=== PATIENT | female | born 1985 | race African-American/Black ===

== ENCOUNTER 2016-11-07 11:05 | Emergency (ER) | payer OTHER ==
[~2016-11-07] VITALS: Ht 167.6 cm; Wt 99.8 kg
[2016-11-07] MEDS ORDERED: MORPHINE SULFATE INJ 2 MG/ML DISP.SYRIN IV ONE ×2 (11:30→13:00)
[2016-11-07] MEDS ORDERED: ONDANSETRON HCL/PF 4 MG/2 ML VIAL IVP ONE (11:30)
[2016-11-07] MEDS ORDERED: IV NS 0.9% 1,000 ML BAG IV ONE ×2 (11:30→15:00)
--- NOTE | 2016-11-07 11:30 | NUR ---
PT BIB SELF C/O N/V/ABD PAIN/CHILLS X TODAY. PT REPORTS THIS HAPPENED A FEW DAYS AGO AND RESOLVED ON ITS OWN THAT TIME. POOR PO TOLERANCE TODAY. SKIN WARM NONDIAPHORETIC. RESP EVEN UNLABORED. APPEARS UNCOMFORTABLE BUT NOT IN ACUTE DISTRESS. IN ER BED 12
[2016-11-07] MEDS ORDERED: ONDANSETRON HCL/PF 4 MG/2 ML VIAL ONE (11:31)
[2016-11-07] MEDS ORDERED: IV SET PRIMARY 1 EA INFUS.SET MC ONE ×2 (11:31→15:00)
[2016-11-07] MEDS ORDERED: IV NS 0.9% 1,000 ML ONE ×2 (11:31→15:00)
[2016-11-07] MEDS ORDERED: MORPHINE SULFATE INJ 4 MG/ML DISP.SYRIN ONE ×2 (11:31→12:57)
[2016-11-07 11:38] LABS: BASOPHILS # (AUTO) 0.3 /CMM (0.0-0.2); BASOPHILS % (AUTO) 3.4 % (0.0-2.0); EOSINOPHILS % (AUTO) 0.2 % (0.0-6.0); HEMATOCRIT 44 % (33-45); HEMOGLOBIN 14.3 g/dL (11.5-14.8); LYMPHOCYTES # (AUTO) 1.5 /CMM (0.8-4.8); MEAN CORPUSCULAR HEMOGLOBIN 27 PG (26.0-33.0); MEAN CORPUSCULAR HGB CONC 33 g/dl (31.0-36.0); MEAN CORPUSCULAR VOLUME 83 fL (82-100); MONOCYTES # (AUTO) 0.4 /CMM (0.1-1.30); MONOCYTES % (AUTO) 4.6 % (2.0-12.0); NEUTROPHILS # (AUTO) 6.2 /CMM (1.8-8.9); NEUTROPHILS % (AUTO) 73.8 % (43.0-81.0); PLATELET COUNT (AUTO) 318 /CMM (150-450); RED BLOOD CELL COUNT(AUTO) 5.28 MIL/uL (4.0-5.2); WHITE BLOOD COUNT (AUTO) 8.4 K/uL (4.3-11.0)
[2016-11-07 11:46] LABS: CALCIUM, SERUM 9.7 mg/dL (8.5-10.1)
[2016-11-07 11:51] LABS: ALBUMIN 3.9 g/dL (3.4-5.0); BILIRUBIN,DIRECT 0.1 mg/dL (0.0-0.2); BILIRUBIN,TOTAL 0.4 mg/dL (0.2-1.0); TOTAL PROTEIN, SERUM 7.8 g/dL (6.4-8.2)
[2016-11-07 12:24] LABS: BILIRUBIN,URINE Negative (NEGATIVE); BLOOD, URINE Moderate Ery/uL (NEGATIVE); KETONES,URINE 40 (NEGATIVE); LEUKOCYTE ESTERASE ,URINE Negative (NEGATIVE); NITRITE, URINE Negative (NEGATIVE); PROTEIN,URINE 100 mg/dl (NEGATIVE); UGLUCOSE Negative (NEGATIVE); UROBILINOGEN,URINE 0.2 EU/dL (0.2)
[2016-11-07 12:29] LABS: APPEARANCE,URINE Hazy (CLEAR); COLOR,URINE Dark Yellow (YELLOW)
[2016-11-07 12:31] LABS: PREGNANCY TEST URINE QUAL NEGATIVE (NEGATIVE)
[2016-11-07 12:34] LABS: RBC,URINE TOO NUMEROUS TO COUN /HPF (0-2)
[2016-11-07 12:35] LABS: BACTERIA,URINE None seen /HPF (None Seen); SQUAMOUS EPITHELIAL CELL,UR Few /HPF (None Seen)
[2016-11-07] MEDS ORDERED: IV NS 0.9% 250 ML IV ONE (13:07)
[2016-11-07] MEDS ORDERED: CT SWABBABLE VALVE TRANS SET 1 EA INFUS.SET MC ONE (13:07)
[2016-11-07] MEDS ORDERED: IOHEXOL-350 100 ML VIAL IV ONE (13:07)
--- NOTE | 2016-11-07 13:15 | NUR ---
PT RESTING QUEITLY, NAD NOTED. VSS. ALL NEEDS ATTENDED TO.
--- NOTE | 2016-11-07 15:07 | NUR ---
PT STATES "I FEEL MUCH BETTER". ALL NEEDS ATTENDED TO. VSS.
[2016-11-07 16:29] VITALS: BP 130/79
--- NOTE | 2016-11-07 16:30 | NUR ---
IV removed. Catheter intact and site benign. Pressure and 4x4 applied to site. No bleeding noted. Patient discharged to home in stable condition. Written and verbal after care instructions given. Patient verbalizes understanding of instruction. AMBULATORY WITH STEADY GAIT. NAD NOTED.
== END 2016-11-07 16:30 | disposition home or self-care (01) ==
LOC: ER 11:06
DX: R10.84 Generalized abdominal pain (principal); R11.2 Nausea with vomiting, unspecified
CPT/HCPCS: 36415; 74160; 80048; 80076; 81001; 83690; 84703; 85025; 87086; 96361; 96374; 96375; 96376; 99285; A4606; J2270 ×2; J2405; J7030 ×2; J7050; Q9967; Z7610; 81000-TC

== ENCOUNTER 2016-11-09 18:06 | Emergency (ER) | payer OTHER ==
[~2016-11-09] VITALS: Ht 167.6 cm; Wt 99.8 kg
--- NOTE | 2016-11-09 18:15 | NUR ---
PT BIB SELF NAUSEA, VOMITING, FEVER, WEAKNESS, DIZZINESS, ABD PAIN x 3 DAYS. PLACED ON MONITOR. GOWNED PT. AWAITING MD ORDER
[2016-11-09] MEDS ORDERED: MORPHINE SULFATE INJ 4 MG/ML DISP.SYRIN ONE (18:37)
[2016-11-09] MEDS ORDERED: ONDANSETRON HCL/PF 4 MG/2 ML VIAL ONE (18:37)
[2016-11-09] MEDS ORDERED: IV SET PRIMARY PUMP SET 1 EA INFUS.SET MC ONE (18:38)
[2016-11-09] MEDS ORDERED: IV NS 0.9% 1,000 ML ONE (18:38)
[2016-11-09] MEDS ORDERED: FAMOTIDINE/PF INJ 20 MG/2 ML VIAL IV ONE ×2 (18:38→19:00)
--- NOTE | 2016-11-09 18:45 | NUR ---
ADY #22 IV ACCESS. MEDICATED PT ORDERED
[2016-11-09 18:57] LABS: BASOPHILS % (AUTO) 0.3 % (0.0-2.0); EOSINOPHILS # (AUTO) 0.1 /CMM (0.0-0.7); EOSINOPHILS % (AUTO) 0.5 % (0.0-6.0); HEMATOCRIT 43 % (33-45); HEMOGLOBIN 14.1 g/dL (11.5-14.8); LYMPHOCYTES % (AUTO) 18.1 % (20.0-44.0); MEAN CORPUSCULAR HEMOGLOBIN 28 PG (26.0-33.0); MEAN CORPUSCULAR HGB CONC 33 g/dl (31.0-36.0); MEAN CORPUSCULAR VOLUME 84 fL (82-100); MONOCYTES # (AUTO) 0.8 /CMM (0.1-1.30); MONOCYTES % (AUTO) 7.2 % (2.0-12.0); NEUTROPHILS # (AUTO) 8.3 /CMM (1.8-8.9); NEUTROPHILS % (AUTO) 73.9 % (43.0-81.0); PLATELET COUNT (AUTO) 335 /CMM (150-450); RED BLOOD CELL COUNT(AUTO) 5.14 MIL/uL (4.0-5.2); WHITE BLOOD COUNT (AUTO) 11.2 K/uL (4.3-11.0)
[2016-11-09] MEDS ORDERED: IV NS 0.9% 1,000 ML BAG IV ONE (19:00)
[2016-11-09] MEDS ORDERED: ONDANSETRON HCL/PF 4 MG/2 ML VIAL IVP ONE (19:00)
[2016-11-09] MEDS ORDERED: MORPHINE SULFATE INJ 2 MG/ML DISP.SYRIN IV ONE (19:00)
[2016-11-09 19:11] LABS: CALCIUM, SERUM 9.4 mg/dL (8.5-10.1); CREATININE 1.1 mg/dL (0.6-1.3); POTASSIUM 3.1 mmol/L (3.5-5.1)
--- NOTE | 2016-11-09 19:14 | NUR ---
RECEIVED REPORT FROM JORDAN RFEEMAN FOR CONTINUE OF CARE.
[2016-11-09 19:17] LABS: BILIRUBIN,DIRECT 0.1 mg/dL (0.0-0.2); BILIRUBIN,TOTAL 0.4 mg/dL (0.2-1.0); TOTAL PROTEIN, SERUM 7.9 g/dL (6.4-8.2)
--- NOTE | 2016-11-09 19:18 | NUR ---
GAVE REPORT TO JIMBO FOR DAV
--- NOTE | 2016-11-09 19:35 | NUR ---
PAC PRUSHA AT BEDSIDE SPEAKING TO PT REGARDING POC.
--- NOTE | 2016-11-09 19:38 | NUR ---
PT UNABLE TO PROVIDE URINE AT THIS TIME. PER PAC PRUSHA AWARE,
[2016-11-09] MEDS ORDERED: METOCLOPRAMIDE HCL 10 MG/2 ML VIAL ONE (19:40)
[2016-11-09] MEDS ORDERED: LIDOCAINE VISCOUS 2% UD 15 ML UDC ONE (19:52)
[2016-11-09] MEDS ORDERED: MAG HYDROX/AL HYDROX/SIMETH 30 ML UDC ONE (19:52)
[2016-11-09] MEDS ORDERED: LIDOCAINE 2% JEL UROJET 10 ML MM ONE (20:00)
[2016-11-09] MEDS ORDERED: METOCLOPRAMIDE HCL 10 MG/2 ML VIAL IV ONE (20:00)
[2016-11-09] MEDS ORDERED: POTASSIUM CHLORIDE 20 MEQ TAB.PRT.SR PO ONE ×2 (20:00→20:07)
[2016-11-09] MEDS ORDERED: MAG HYDROX/AL HYDROX/SIMETH 30 ML UDC PO ONE (20:00)
--- NOTE | 2016-11-09 20:00 | NUR ---
URINE COLLECTED. SENT TO LAB
[2016-11-09 20:14] LABS: APPEARANCE,URINE CLEAR (CLEAR); BILIRUBIN,URINE NEGATIVE (NEGATIVE); BLOOD, URINE 3+ Ery/uL (NEGATIVE); COLOR,URINE YELLOW (YELLOW); KETONES,URINE 2+ (NEGATIVE); LEUKOCYTE ESTERASE ,URINE NEGATIVE (NEGATIVE); NITRITE, URINE NEGATIVE (NEGATIVE); PH,URINE 8.5 (5.0-8.0); PROTEIN,URINE NEGATIVE (NEGATIVE); UGLUCOSE NEGATIVE (NEGATIVE)
--- NOTE | 2016-11-09 20:28 | NUR ---
PAC PRUSHA AT BEDSIDE SPEAKING TO PT REGARDING RESULTS
--- NOTE | 2016-11-09 20:44 | NUR ---
IV removed. Catheter intact and site benign. Pressure and 4x4 applied to site. No bleeding noted. Patient discharged to home in stable condition. Written and verbal after care instructions given. Patient verbalizes understanding of instruction. ambulatory with a steady gait. instructed pt not to drive. pt verbalize understanding.
[2016-11-09 20:45] VITALS: BP 138/78
[2016-11-09 21:23] LABS: BACTERIA,URINE Few /HPF (None Seen); SQUAMOUS EPITHELIAL CELL,UR Rare /HPF (None Seen)
== END 2016-11-09 20:46 | disposition home or self-care (01) ==
LOC: ER 18:07
DX: K21.9 Gastro-esophageal reflux disease without esophagitis (principal)
CPT/HCPCS: 36415; 80048; 80076; 81001; 83690; 85025; 93005; 96361; 96374; 96375; 99285; A4606 ×2; J2270; J2405; J2765; J3490; J7030; Z7610 ×2; 81000-TC